=== PATIENT | male | born 2000 | race Caucasian/White ===

== ENCOUNTER 2020-02-10 08:24 | Inpatient (IN) ==
[2020-02-10 10:19] LABS: Hematocrit 43.8 % (37.5-50.1); Hemoglobin 14.4 g/dL (12.9-16.9); Mean Corpuscular HGB Conc 32.9 g/dL (31.6-35.5); Mean Corpuscular Volume 91.3 fL (83.0-100.0); Mean Platelet Volume 11.1 fL (9.4-12.4); Platelet Count 206 K/mcL (140-400); Red Cell Distribution Width 11.9 % (11.5-14.5); White Blood Count 22.1 K/mcL (4.3-11.1)
[2020-02-10 10:39] LABS: BUN/Creatinine Ratio 20 (6-26); Blood Urea Nitrogen 15 mg/dL (6-20); Calcium 9.6 mg/dL (8.6-10.3); Carbon Dioxide 24 mEq/L (23-29); Chloride 102 mEq/L (98-107); Glucose 116 mg/dL (70-105); Osmolality,Calculated 282 (280-300); Potassium 3.7 mEq/L (3.5-5.1); Sodium 135 mEq/L (136-145); eGFR For African Americans > 60 (> 60); eGFR For Non-African Americans > 60 (> 60)
[2020-02-10] MEDS ORDERED: *HR* Promethazine 25 MG/ML VIAL IVP PRN (11:37)
[2020-02-10] MEDS ORDERED: Acetaminophen 325 MG TABLET PO PRN (11:37)
[2020-02-10] MEDS ORDERED: Ringers Solution, Lactated 1,000 ML IVC ONE (11:38)
[2020-02-10] MEDS ORDERED: *HR* OxyCODONE Immed Rel 5 MG TABLET PO PRN (11:38)
[2020-02-10 12:32] LABS: INR 1.4; Prothrombin Time 16.3 Seconds (9.4-12.1)
[2020-02-10] MEDS ORDERED: *HR* Dextrose 50 % in Water (Vial) 50 ML VIAL IVP PRN (17:24)
[2020-02-10] MEDS ORDERED: Dextrose Gel 15 GM/37.5 ML TUBE PO PRN ×2 (17:24)
[2020-02-10] MEDS ORDERED: D5% in Water 1,000 ML IVC PRN (17:24)
[2020-02-10] MEDS: Cefepime HCl 2,000 MG in Water for inj. (sterile) 20 ML IVP SCH (18:02)
[2020-02-10] MEDS: Vancomycin 2,000 MG/520 ML IV.SOLN IVPB SCH (18:53)
[2020-02-11] MEDS: *HR* Metoprolol 5 MG/5 ML VIAL IVP ONE ×2 (00:03→00:13)
[2020-02-11] MEDS: Cefepime HCl 2,000 MG in Water for inj. (sterile) 20 ML IVP SCH ×4 (00:04→23:29)
[2020-02-11] MEDS ORDERED: *HR* Metoprolol 5 MG/5 ML VIAL IVP ONE (00:11)
[2020-02-11] MEDS: Vancomycin 2,000 MG/520 ML IV.SOLN IVPB SCH ×2 (06:23→18:12)
[2020-02-11 07:44] LABS: Hematocrit 41.4 % (37.5-50.1); Hemoglobin 13.4 g/dL (12.9-16.9); Mean Corpuscular HGB Conc 32.4 g/dL (31.6-35.5); Mean Corpuscular Volume 92.6 fL (83.0-100.0); Mean Platelet Volume 11.1 fL (9.4-12.4); Platelet Count 215 K/mcL (140-400); Red Blood Count 4.47 M/mcL (4.19-5.50); Red Cell Distribution Width 12.1 % (11.5-14.5); White Blood Count 20.1 K/mcL (4.3-11.1)
[2020-02-11 08:05] LABS: BUN/Creatinine Ratio 17 (6-26); Blood Urea Nitrogen 13 mg/dL (6-20); Calcium 9.3 mg/dL (8.6-10.3); Carbon Dioxide 26 mEq/L (23-29); Chloride 103 mEq/L (98-107); Glucose 107 mg/dL (70-105); Osmolality,Calculated 283 (280-300); Potassium 3.8 mEq/L (3.5-5.1); Sodium 136 mEq/L (136-145); eGFR For African Americans > 60 (> 60); eGFR For Non-African Americans > 60 (> 60)
[2020-02-12 05:23] LABS: Basophils % 0.3 %; Eosinophils # 0.2 K/mcL (0.0-0.6); Eosinophils % 1.4 %; Hematocrit 40.1 % (37.5-50.1); Hemoglobin 13.1 g/dL (12.9-16.9); Immature Granulocytes % 0.7 % (0-4); Lymphocytes # 2.3 K/mcL (0.6-4.6); Lymphocytes % 16.6 %; Mean Corpuscular HGB Conc 32.7 g/dL (31.6-35.5); Mean Corpuscular Hemoglobin 30.6 pg (28.0-33.3); Mean Corpuscular Volume 93.7 fL (83.0-100.0); Mean Platelet Volume 10.8 fL (9.4-12.4); Monocytes # 1.2 K/mcL (0.0-1.3); Monocytes % 8.5 %; Platelet Count 195 K/mcL (140-400); Red Blood Count 4.28 M/mcL (4.19-5.50); Red Cell Distribution Width 11.9 % (11.5-14.5); Segmented Neutrophils % 72.5 %; White Blood Count 13.8 K/mcL (4.3-11.1)
[2020-02-12 05:45] LABS: BUN/Creatinine Ratio 18 (6-26); Blood Urea Nitrogen 13 mg/dL (6-20); Calcium 9.2 mg/dL (8.6-10.3); Carbon Dioxide 24 mEq/L (23-29); Chloride 103 mEq/L (98-107); Glucose 104 mg/dL (70-105); Osmolality,Calculated 284 (280-300); Potassium 3.8 mEq/L (3.5-5.1); Sodium 137 mEq/L (136-145); eGFR For African Americans > 60 (> 60); eGFR For Non-African Americans > 60 (> 60)
[2020-02-12] MEDS: Vancomycin 2,000 MG/520 ML IV.SOLN IVPB SCH (06:22)
[2020-02-12] MEDS: Cefepime HCl 2,000 MG in Water for inj. (sterile) 20 ML IVP SCH (07:02)
[2020-02-12 11:07] VITALS: BP 107/69
[2020-02-12] MEDS ORDERED: Vancomycin 1,750 MG/517.5 ML IV.SOLN IVPB SCH (14:00)
== END 2020-02-12 12:15 | disposition home or self-care (01) | DRG 557 ==
LOC: EMEROOARM 08:24 → 3ANU 08:24 → SUATTDRO 11:52 → 3ANU 13:08
PROVIDERS: ADMIT Internal Medicine; ATTEND Family Medicine